=== PATIENT | male | born 1980 | race Caucasian/White ===

== ENCOUNTER → 2017-05-16 | Day surgery (SDC) | payer OTHER ==
[~2017-05-16] VITALS: Ht 185.4 cm; Wt 105.3 kg
[~2017-05-16] MED LIST: *RESP: ALBUTEROL 2.5 MG/3 ML NEB (PRN) PERIprocedural Use ONLY NEB ONE; *morphine SULFATE 8 MG/ML PERIprocedure ONLY ONE; ALEV220T14 PO; BACITRACIN TOP OINT 15 GM TUBE ONE; CHLORHEXIDINE GLUCONATE 2 % 1 PACK (2 CLOTHS) TOPICAL PRN; DO NOT ADM ANY ANTICOAGULANT DRUGS PRN; GELATIN 12 MM/7 MM FOAM ONE; GELFOAM SIZE 100 ONE; HYDROmorphone HCL PF 1 MG/ML VIAL IV PUSH PRN; IBUP200T2 PO; INSULIN HUMAN REGULAR 1,000 UNITS/10 ML VIAL SQ PRN; LACTATED RINGER'S 1000 ML INJ 2,000 ML IV ONE; LACTATED RINGER'S 1000 ML INJ 500 ML IV ONE; LACTATED RINGER'S 1000 ML IV PRN; LIDOCAINE HCL 2% 20 ML VIAL INFIL ONE; LIDOCAINE HCL 2% 50 ML VIAL ONE; METOPROLOL TARTRATE 25 MG TAB PO PRN; MIDAZOLAM HCL 2 MG/2 ML VIAL ONE; ONDANSETRON HCL 4 MG/2 ML VIAL IV PUSH ONE; ONDANSETRON HCL 4 MG/2 ML VIAL IV PUSH PRN; ONDANSETRON HCL 4 MG/2 ML VIAL ONE; POVIDONE IODINE 5% (ANTISEPSIS KIT) 4 APPLICATIONS EACH NARE PRN; PROPOFOL 200 MG/20 ML AMP IV ONE; SODIUM CHLORID 0.9% 500 ML IV PRN; VENTAER INH; ceFAZolin 2 GM PREMIX 50 ML IV SCH; ceFAZolin INJ 1,000 MG VIAL IV ONE; fentaNYL CITRATE 250 MCG/5 ML AMP ONE
[2017-05-16 07:33] VITALS: BP 146/88; PULSE 65; RESP 18; TEMP 98.8; O2SAT 98
--- NOTE | 2017-05-16 13:49 | RADRPT ---
EXAM DATE/TIME: 05/16/2017 10:14 [place] COMPARISON: No previous studies available for comparison. INDICATIONS : ORIF right wrist MEDICAL HISTORY : Hypertension. SURGICAL HISTORY : None. ENCOUNTER: Initial ACUITY: 1 day PAIN SCORE: Non-responsive. LOCATION: Right wrist CONCLUSION: Fluoroscopic images of the right wrist during internal fixation. Shaji Chaudhary MD on May 16, 2017 at 13:47 Board Certified Radiologist. This report was verified electronically.
[2017-05-16 14:47] VITALS: BP 139/96; PULSE 73; RESP 20; TEMP 97.3; O2SAT 95
--- NOTE | 2017-05-18 17:58 | MP ---
cc: SAMANTHA NATH MD DATE OF SURGERY: 05/18/2017. PREOPERATIVE DIAGNOSIS: 1. Scaphoid nonunion, right wrist. 2. Right wrist pain. POSTOPERATIVE DIAGNOSIS: 1. Scaphoid nonunion, right wrist. 2. Right wrist pain. OPERATION: 1. Scaphoid excision, four corner fusion, right wrist. 2. Posterior interosseous nerve neurectomy, right wrist. SURGEON: Dr. Samantha Nath. ANESTHESIA: General and local. TOURNIQUET TIME: Two hours at 250 mmHg. IMPLANTS: Two [employer] 3.5 mm compression screws. 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 X-rays showed a scaphoid nonunion with significant arthritis between the scaphoid and radius. 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 Treatment options were discussed with the patient including observation, corticosteroid injection, surgical intervention including scaphoid excision four corner fusion versus full fusion, and he elected to proceed. He requested surgical intervention. Risks were explained but not limited to wound complications, infection, nonunion, malunion, need for fusion, persistent pain, paresthesias, and he elected to proceed. The patient was educated on tobacco cessation to decrease the risk for nonunion. He understands he will likely be on light duty at work for three months. He elected to proceed. DESCRIPTION OF THE PROCEDURE IN DETAIL: The patient was identified in the preoperative holding area and the correct extremity was marked. The patient was taken to the operating room where anesthesia was induced. The right upper extremity was prepped and draped in normal sterile fashion. Tourniquet was inflated to 250 mmHg for two hours. A longitudinal incision was made on the dorsum of the wrist. The extensor retinaculum was identified and Z lengthened and protected throughout the procedure. The posterior interosseous nerve neurectomy was performed. A radially based capsular flap was made. Upon doing this, there was significant destruction of the scaphoid. The scaphoid was removed in its entirety including the area of nonunion. Following this, x-rays and the clinical exam showed good cartilage on the lunate as well as the distal radius. The decision was made at this time to proceed with scaphoid excision and a four corner fusion. The cartilage was removed from the capitate as well as the distal pole of the lunate as well as the hamate and triquetrum. This was accomplished using osteotomes, curette, rongeur and a water-cooled lisandra. Then K-wires were used to reduce the lunate on the capitate and a guidewire for a 3.5 millimeter [employer] screw was placed and this was confirmed under fluoroscopy to have good position in both the AP and lateral planes. An osteophyte was removed from the dorsal aspect of the lunate. This improved extension of the wrist. The K-wire was over-drilled and then a 3.5 x 30-mm compression screw was placed again from the lunate into the capitate. The same procedure was performed to fuse the triquetrum to the hamate. This was performed using a 22 x 3.5-mm compression screw, DBX mixed with some bone graft from the healthy portion of the scaphoid was placed into the void. Again, on clinical exam, as well as x-rays, this provided a stable fusion with flexion, extension, supination and pronation, radial and ulnar deviation of the wrist. The patient had excellent flexion, had approximately 30 degrees of extension. The capsule was then closed with PDS. The tourniquet was released. The extensor retinaculum was repaired with the extensor pollicis longus out of the retinaculum. The skin was closed with Monocryl and nylon. Approximately 10 mL of 2% lidocaine with no epinephrine was used for local anesthesia. The patient was placed into a wrist splint and awoken from anesthesia without any complications. I will see him in two weeks for suture removal and then he will be placed into a splint for another two to four weeks and he then will begin occupational therapy for gentle range of motion of the wrist, but again, no heavy lifting, gripping or working as a riddle for approximately three months. He understands he is at high risk for need for additional surgeries, persistent pain, need for eventual fusion of the wrist but at this time he elected to proceed with scaphoid excision four-corner fusion to maintain motion of the wrist. He understands he is at risk for nonunion if he does not quit smoking. MD FADI Peralta /2:17 PM /5:[address] [facility]
== END | disposition home or self-care (01) ==
LOC: HSDC 06:50
PROVIDERS: ATTEND Orthopaedic Surgery
DX: S62.021K Displaced fracture of middle third of navicular [scaphoid] bone of right wrist, subsequent encounter for fracture with nonunion (principal); I10 Essential (primary) hypertension; J45.909 Unspecified asthma, uncomplicated; K21.9 Gastro-esophageal reflux disease without esophagitis; M19.90 Unspecified osteoarthritis, unspecified site; X58.XXXD Exposure to other specified factors, subsequent encounter
CPT/HCPCS: 00300; 01830; 25810; 64772; 73110; 76000; 94664; C1713; J0690; J2250; J2270; J2405; J3010; J7120; J7613